=== PATIENT | male | born 1995 | race Caucasian/White ===

== ENCOUNTER 2016-08-24 23:31 | Emergency (ER) | payer BC, OTHER ==
--- NOTE | 2016-08-24 23:53 | ED Physician Chart ---
Chief Complaint/HPI - Patient Information Date Seen:: 08/24/16 Time Seen:: 23:37 Chief Complaint:: RIGHT ANKLE INJURY History of Present Illness:: THIS IS A 21 YO MALE WHO INJURED HIS RIGHT ANKLE TONIGHT SKATEBOARDING. HE DENIES ALL OTHER INJURIES. HE STATES THAT HE HAS NOT INJURED THAT ANKLE BEFORE. HE IS NOW CONCERNED ABOUT THE PAIN AND SWELLING. Allergies:: Allergies Allergy/AdvReac Type Severity Reaction Status Date / Time No Known Allergies Allergy Verified 08/24/16 23:38 Vitals:: Vital Signs - 8 hr 08/24/16 23:35 Temp 97.9 F HR 68 RR 16 BP 113/74 O2 Sat % 99 Historian:: Patient Review:: Nurse's Note Reviewed Review of Systems - Review of Systems General/Constitutional: No fever, No chills, No weight loss, No weakness, No diaphoresis, No edema, No loss of appetite Skin: No skin lesions, No rash, No bruising Head: No headache, No light-headedness Eyes: No loss of vision, No pain, No diplopia ENT: No earache, No nasal drainage, No sore throat, No tinnitus Neck: No neck pain, No swelling, No thyromegaly, No stiffness, No mass noted Cardio Vascular: No chest pain, No palpitations, No PND, No orthopnea, No edema Pulmonary: No SOB, No cough, No sputum, No wheezing GI: No nausea, No vomiting, No diarrhea, No pain, No melena, No hematochezia, No constipation, No hematemesis G/U: No dysuria, No frequency, No hematuria Musculoskeletal: Bone or joint pain (RIGHT ANKLE), No back pain, No muscle pain Endocrine: No polyuria, No polydipsia Psychiatric: No prior psych history, No depression, No anxiety, No suicidal ideation Hematopoietic: No bruising, No lymphadenopathy Allergic/Immuno: No urticaria, No angioedema Neurological: No syncope, No focal symptoms, No weakness, No paresthesia, No headache, No seizure, No dizziness, No confusion, No vertigo Past Medical History - Past Medical History Obtainable: Yes Past Medical History: No significant medical hx Family History: None Social History: Non Smoker, No Alcohol, No Drug Use Surgical History: None Psychiatricy History: None Medication: Reviewed Family Medical History - Family Member Mother History Unknown: Yes Physical Exam - Physical Examination General/Constitutional: Awake, Well-developed, well-nourished, Alert, No distress, GCS 15, Non-toxic appearing, Ambulatory Head: Atraumatic Eyes: Lids, conjuctiva normal, PERRL, EOMI Skin: Nl inspection, No rash, No skin lesions, No ecchymosis, Well hydrated, No lymphadenopathy ENMT: External ears, nose nl, Nasal exam nl, Lips, teeth, gums nl Neck: Nontender, Full ROM w/o pain, No JVD, No nuchal rigidity, No bruit, No mass, No stridor Respiratory: Nl effort/Exclusion, Clear to Auscultation, No Wheeze/Rhonchi/Rales Cardio Vascular: RRR, No murmur, gallop, rubs, NL S1 S2 GI: No tenderness/rebounding/guarding, No organomegaly, No hernia, Normal BS's, Nondistended, No mass/bruits, No McBurney tenderness : No CVA tenderness Extremities: Full ROM, normal strength in all extremities, No edema, Normal digits & nails Other Extremities comments:: THERE IS A SMALL AMOUNT OF SWELLING AND TENDERNESS OVER THE RIGHT LATERAL MALLEOUS OF THE ANKLE. THE SENSORY AND CIRCULATION IS NORMAL. Neuro/Psych: Alert/oriented, DTR's symmetric, Normal sensory exam, Normal motor strength, Judgement/insight normal, Mood normal, Normal gait, No focal deficits Misc: normal gait, Normal back, No paraspinal tenderness Labs/Radiology/EKG Results - Radiology Results Results: ANKLE X-RAY = NEG FOR FRACTURE ED Septic Shock - . Is Septic Shock (SBP<90, OR Lactate>4 mmol\L) present?: No - <6hrs of presentation: Vital Signs: Vital Signs - 8 hr 08/24/16 23:35 Temp 97.9 F HR 68 RR 16 BP 113/74 O2 Sat % 99 Reassessment (Disposition) - Reassessment Reassessment Condition:: Improved - Diagnosis Diagnosis:: SPRAIN RIGHT ANKLE - Aftercare/Follow up Instructions Aftercare/Follow-Up Instructions:: Counseled pt regarding lab results/diagnosis & need follow up, Refer to Discharge Instructions, Counseled pt & family regarding lab results/diagnosis & need follow up - Patient Disposition Discharge/Transfer:: Home Condition at Disposition:: Improved ED Discharge Plan - Patient Disposition Admit/Discharge/Transfer: PT DISCHARGED HOME Condition at Disposition: Improved
--- NOTE | 2016-08-25 10:05 | Diagnostic Imaging Report ---
Right ankle 3 views Indication: Fracture Comparison: none Findings: There is diffuse soft tissue swelling surrounding the ankle, greatest along the lateral malleolar region. No evidence of an acute fracture or dislocation. Minimal degenerative changes are noted. Tiny ossicle versus osteophytic spurs seen along the anterior aspect of the tibial plafond. Additional tiny nonspecific ossicles are seen adjacent to the lateral hindfoot. Impression: Diffuse soft tissue tissue swelling surrounding the ankle. No evidence of an acute fracture. In the setting of trauma, if clinical symptoms persist and there is continued concern for an occult fracture, follow up exams in 5-7 days is suggested.
== END 2016-08-25 00:15 | disposition home or self-care (01) ==
LOC: ER 23:31
DX: S93.401A Sprain of unspecified ligament of right ankle, initial encounter (principal); V00.131A Fall from skateboard, initial encounter; Y93.51 Activity, roller skating (inline) and skateboarding; Y92.89 Other specified places as the place of occurrence of the external cause; Y99.8 Other external cause status
CPT/HCPCS: 73610-RT-TC; Z7502